=== PATIENT | male | born 1975 | race Caucasian/White ===

== ENCOUNTER → 2023-08-18 | Emergency (ER) | payer OTHER ==
[~2023-08-18] MED LIST: AMOX/K CLAV 875 MG TAB ONE; HYDROCODONE/APAP 5/325 MG TAB ONE; predniSONE 20 MG TAB ONE
--- OUTSIDE RECORDS SUMMARY | 2023-08-18 21:23 | XMS REPORT | Continuity of Care Document ---
Author Name Unknown Address [address] [place] [address] [facility] Address [address] [place] [address] Care Team Providers Care Co Founder & Ceo Name Role Phone Shannan SANDHU, Anshu Joe Attending Clinician + [phone] [facility], Acute Care Clinic Attending Clinician Lotus Wells MD, Pat Haque Attending Clinician Problems Condition Name Condition Details Condition Category Status Onset Date Resolution Date Last Treatment Date Treating Clinician Comments Source No known active problems No known active problems Disease [facility] Allergies, Adverse Reactions, Alerts Allergy Name Allergy Type Status Severity Reaction(s) Onset Date Inactive Date Treating Clinician Comments Source NO KNOWN ALLERGIE S Drug Class Active [facility] Social History Social Habit Start Date Stop Date Quantity Comments Source Sex Assigned At [facility] Exposure to SARS-CoV-2 (event) Not sure [facility] Smoking Status Start Date Stop Date Source Never smoker [facility] Medications Ordered Medication Name Filled Medication Name Start Date Stop Date Current Medication? Ordering Clinician Indication Dosage Frequency Signature (SIG) Comments Components Source benzonatate (TESSALON PERLES) 100 mg capsule 11-25 00:00: 00 12-10 04:59 :00 No [id number] 100mg Take 1 capsule by mouth 3 (three) times daily for 14 days. [facility] benzonatate (TESSALON PERLES) 100 mg capsule 2019-11-25 00:00: 00 12-10 04:59 :00 No [id number] 100mg Take 1 capsule by mouth 3 (three) times daily for 14 days. [facility] Vital Signs Vital Name Observation Time Observation Value Comments S ource Systolic blood pressure 2019-11-26 16:42:00 144 mm[Hg] [facility] Diastolic blood pressure 2019-11-26 16:42:00 92 mm[Hg] [facility] Heart rate 2019-11-26 16:40:00 74 /min [facility] Body temperature 2019-11-26 16:40:[address] [facility] Respiratory rate 2019-11-26 16:40:00 18 /min [facility] Body height 2019-11-26 16:40:00 180.3 cm [facility] Body weight 2019-11-26 16:40:00 91.627 kg [facility] BMI 2019-11-26 16:40:00 28.17 kg/m2 [facility] Oxygen saturation in Arterial blood by Pulse oximetry 2019-11-26 16:40:00 98 /min [facility] Encounters Start Date/Time End Date/Time Encounter Type Admission Type Attending [facility] Care Facility Care Department Encounter ID Source 2019-11-30 00:00:00 2019-11-30 00:00:00 Patient Secure Msg Dez Campbellankurchuy A [facility] [address] ..[id number] [facility] 2019-11-26 11:20:30 2019-11-26 11:40:30 Urgent Care [facility], Acute Care Clinic Pat Wells [facility] [address] ..[id number] [facility] 2019-11-26 11:00:00 2019-11-26 11:00:00 Outpatient R [facility] [id number] [facility]
--- NOTE | 2023-08-18 22:03 | EDPHYS ---
Physician Documentation [facility] Name: Paramjit Jacobson Age: 47 yrs Sex: Male : 1975 Arrival Date: 08/18/2023 Time: 21:20 Bed IW1 Private MD: ED Physician Cody Richardson HPI: 08/18 22:00 This 47 yrs old Male presents to ER via Ambulatory with complaints of Ear Pain. cp 22:00 The patient presents with hearing loss, complete, pain. The complaints affect the left cp ear. 22:00 Onset: The symptoms/episode began/occurred today. cp 22:00 Associated signs and symptoms: Pertinent positives: decreased hearing, drainage from cp ear, cough, Pertinent negatives: fever. Severity of symptoms: in the emergency department the symptoms are unchanged despite home interventions. Historical: - Allergies: 21:35 No Known Allergies; cm10 - Home Meds: 21:35 None [Active]; cm10 - PMHx: 21:35 None; cm10 - PSHx: 21:35 Knee; cm10 - Immunization history:: Adult Immunizations up to date. - Social history:: Smoking status: Patient reports the use of cigarette tobacco products, smokes one pack cigarettes per day. ROS: 22:00 Constitutional: Negative for body aches, chills, fever, poor PO intake, cp 22:00 Eyes: Negative for injury, pain, redness, and discharge, cp 22:00 ENT: Positive for ear pain, hearing loss, Negative for sore throat, difficulty swallowing, difficulty handling secretions, 22:00 Respiratory: Positive for cough, Negative for shortness of breath, wheezing, 22:00 Neuro: Negative for headache, 22:00 All other systems are negative, Exam: 22:00 Constitutional: The patient appears in no acute distress, alert, awake, non-toxic, well cp developed, well nourished, uncomfortable, 22:00 Head/Face: Normocephalic, atraumatic. cp 22:00 Eyes: Periorbital structures: appear normal, Conjunctiva: normal, no exudate, no injection, Sclera: no appreciated abnormality, Lids and lashes: appear normal, bilaterally, 22:00 ENT: External ear(s): are unremarkable, Ear canal(s): are normal, clear, TM's: decreased mobility, on the left, erythema, that is moderate, on the left, Examination of the other ear shows no obvious abnormality, Nose: is normal, Mouth: Lips: moist, Oral mucosa: pink and intact, moist, Posterior pharynx: Airway: no evidence of obstruction, patent, 22:00 Neck: ROM/movement: is normal, is supple, without pain, no range of motions limitations, no meningismus, Lymph nodes: no appreciated lymphadenopathy, 22:00 Chest/axilla: Inspection: normal, 22:00 Cardiovascular: Rate: normal, 22:00 Respiratory: the patient does not display signs of respiratory distress, Respirations: normal, no use of accessory muscles, no retractions, labored breathing, is not present, Breath sounds: decreased breath sounds, are not appreciated, stridor, is not appreciated, + upper airway congestion. wheezing: is not appreciated, 22:00 Abdomen/GI: Exam negative for discomfort, distension, guarding, Inspection: abdomen appears normal, Vital Signs: 21:34 BP 137 / 87; Pulse 88; Resp 18; Temp 99.5; Pulse Ox 96% on R/A; Weight 86.18 kg; Height cm10 5 ft. 11 in. ; Pain 5/10; 21:34 Body Mass Index 26.50 (86.18 kg, 180.34 cm) cm10 21:34 Pain Scale: Adult cm10 MDM: 21:50 Patient medically screened. cp 22:02 Data reviewed: vital signs, nurses notes, and as a result, I will discharge patient. 22:02 Differential diagnosis: otitis media, otitis externa, ruptured TM, acute otalgia, cp cerumen impaction, barotrauma . I considered the following discharge prescriptions or medication management in the emergency department Medications were administered in the Emergency Department. See MAR. Counseling: I had a detailed discussion with the patient and/or guardian regarding the historical points, exam findings, and any diagnostic results supporting the discharge/admit diagnosis, to return to the emergency department if symptoms worsen or persist or if there are any questions or concerns that arise at home. Administered Medications: 22:18 Drug: Amoxicillin-Clavulanate PO 875 mg PO once Route: PO; cm10 22:20 Follow up: Response: No adverse reaction cm10 22:18 Drug: predniSONE PO 40 mg PO once Route: PO; cm10 22:20 Follow up: Response: No adverse reaction cm10 22:18 Drug: HYDROcodone-acetaminophen PO 5 mg-325 mg 1 tabs PO once Route: PO; cm10 22:20 Follow up: Response: No adverse reaction cm10 Disposition: 08/19 03:05 Co-signature as Attending Physician, Cody Richardson MD I agree with the assessment sp4 and plan of care. I reviewed the patient's care provided by the Advanced Practice Provider and agree with the diagnosis and treatment plan. Disposition Summary: 08/18/23 22:02 Discharge Ordered Notes: Location: Home cp Problem: new cp Symptoms: have improved cp Condition: Stable cp Diagnosis - Otitis media, unspecified, left ear cp - Cough cp Followup: cp - With: Eliz Estevez MD - When: 2 - 3 days - Reason: Worsening of condition Discharge Instructions: - Discharge Summary Sheet cp - Otitis Media, Adult cp - Cough, Adult cp Forms: - Medication Reconciliation Form cp - Thank You Letter cp - Antibiotic Education cp - Prescription Opioid Use cp - Patient Portal Instructions cp - Leadership Thank You Letter cp Prescriptions: - Bromfed DM 2-30-10 mg/5 mL Oral syrup - administer 10 milliliter ORAL route every 6 hours As needed as needed for cold cp symptoms; 240 milliliter; Refills: 0, Product Selection Permitted - Augmentin 875-125 mg Oral Tablet - take 1 tablet ORAL route every 12 hours for 10 days; 20 tablet; Refills: 0, cp Product Selection Permitted - Medrol (Inocente) 4 mg Oral Tablets, Dose Pack - take 1 tablet ORAL route as directed - follow package instructions; 1 packet; cp Refills: 0, Product Selection Permitted Signatures: Shai Raymond PA PA cp Cody Richardson MD MD sp4 Sloane Mahmood RN RN cm10
--- NOTE | 2023-08-18 22:03 | ER ---
Nurse's Notes [facility] Name: Paramjit Jacobson Age: 47 yrs Sex: Male : 1975 Arrival Date: 08/18/2023 Time: 21:20 Bed IW1 Private MD: Diagnosis: Otitis media, unspecified, left ear;Cough Presentation: 08/18 21:34 Chief complaint: Patient states: Has been sick for 1 week and today felt something pop cm10 in left ear and had some drainage with blood. Pt reports having increased pressure in left ear. No Fevers. Coronavirus screen: Vaccine status: Patient reports being unvaccinated. Client denies travel out of the [place] in the last 14 days. Ebola Screen: Patient denies travel to an Ebola-affected area in the 21 days before illness onset. No symptoms or risks identified at this time. Initial Sepsis Screen: Does the patient meet any 2 criteria? No. Patient's initial sepsis screen is negative. Does the patient have a suspected source of infection? No. Patient's initial sepsis screen is negative. Risk Assessment: Do you want to hurt yourself or someone else? Patient reports no desire to harm self or others. Onset of symptoms was August 18, 2023. 21:34 Method Of Arrival: Ambulatory cm10 21:34 Acuity: JEYSON 4 cm10 Triage Assessment: 21:49 General: Appears in no apparent distress. comfortable, Behavior is calm, cooperative. cm10 Pain: Complains of pain in left ear Pain currently is 5 out of 10 on a pain scale. Pain began suddenly. EENT: Reports nasal congestion pain in left ear. Neuro: No deficits noted. Level of Consciousness is awake, alert, obeys commands, Oriented to person, place, time, situation. Cardiovascular: No deficits noted. Denies chest pain, shortness of breath, Capillary refill < 3 seconds Patient's skin is warm and dry. Respiratory: No deficits noted. Reports cough that is Airway is patent Respiratory effort is even, unlabored, Respiratory pattern is regular, symmetrical. GI: No deficits noted. No signs and/or symptoms were reported involving the gastrointestinal system. : No deficits noted. No signs and/or symptoms were reported regarding the genitourinary system. Derm: No deficits noted. No signs and/or symptoms reported regarding the dermatologic system. Skin is intact, Skin is pink, warm \T\ dry. Musculoskeletal: No deficits noted. Range of motion: intact in all extremities. Historical: - Allergies: 21:35 No Known Allergies; cm10 - Home Meds: 21:35 None [Active]; cm10 - PMHx: 21:35 None; cm10 - PSHx: 21:35 Knee; cm10 - Immunization history:: Adult Immunizations up to date. - Social history:: Smoking status: Patient reports the use of cigarette tobacco products, smokes one pack cigarettes per day. Screenin:52 [facility] ED Fall Risk Assessment (Adult) History of falling in the last 3 months, cm10 including since admission No falls in past 3 months (0 pts) Confusion or Disorientation No (0 pts) Intoxicated or Sedated No (0 pts) Impaired Gait No (0 pts) Mobility Assist Device Used No (0 pt) Altered Elimination No (0 pt) Score/Fall Risk Level 0 - 2 = Low Risk Oriented to surroundings, Maintained a safe environment, Hourly rounding (assess needs \T\ fall precautionary measures) done. Abuse screen: Denies threats or abuse. Denies injuries from another. Nutritional screening: No deficits noted. Tuberculosis screening: No symptoms or risk factors identified. Vital Signs: 21:34 BP 137 / 87; Pulse 88; Resp 18; Temp 99.5; Pulse Ox 96% on R/A; Weight 86.18 kg; Height cm10 5 ft. 11 in. ; Pain 5/10; 21:34 Body Mass Index 26.50 (86.18 kg, 180.34 cm) cm10 21:34 Pain Scale: Adult cm10 ED Course: 21:23 Patient arrived in ED. [id number] 21:35 Triage completed. cm10 21:36 Shai Raymond PA is PHCP. cp 21:36 Cody Richardson MD is Attending Physician. cp 21:36 Arm band placed on Patient placed in waiting room. cm10 21:52 Patient has correct armband on for positive identification. Provided Education on: ER cm10 process and procedures.. 21:52 No provider procedures requiring assistance completed. Patient did not have IV access cm10 during this emergency room visit. 22:02 Eliz Estevez MD is Referral Physician. cp Administered Medications: 22:18 Drug: Amoxicillin-Clavulanate PO 875 mg PO once Route: PO; cm10 22:20 Follow up: Response: No adverse reaction cm10 22:18 Drug: predniSONE PO 40 mg PO once Route: PO; cm10 22:20 Follow up: Response: No adverse reaction cm10 22:18 Drug: HYDROcodone-acetaminophen PO 5 mg-325 mg 1 tabs PO once Route: PO; cm10 22:20 Follow up: Response: No adverse reaction cm10 Medication: 21:52 VIS not applicable for this client. cm10 Outcome: 22:02 Discharge ordered by . poli 22:21 Discharged to home ambulatory, with family, cm10 22:21 Condition: good 22:21 Discharge instructions given to patient, Instructed on discharge instructions, follow up and referral plans. medication usage, Demonstrated understanding of instructions, follow-up care, medications, Prescriptions given X 3, 22:21 Patient left the ED. cm10 Signatures: Shai Raymond PA PA cp Jeffries, Jennifer [email or web address] Sloane Mahmood RN RN cm10
[2023-08-19 01:45] VITALS: BP 137/87; TEMP 99.5; O2SAT 96
== END ==
LOC: ER 21:20
DX: H66.92 Otitis media, unspecified, left ear (principal); R05.9 Cough, unspecified; F17.210 Nicotine dependence, cigarettes, uncomplicated
CPT/HCPCS: 99283; J7512